=== PATIENT | male | born 1975 | race Caucasian/White ===

== ENCOUNTER 2016-08-11 14:37 | Inpatient (IN) | payer MEDICAID ==
[~2016-08-11] VITALS: Ht 172.7 cm; Wt 74.0 kg
[2016-08-11] MEDS ORDERED: LORAZEPAM 2 MG INJ IV STA (15:23)
[2016-08-11] MEDS ORDERED: LEVETIRACETAM IV 1,000 MG in SOD CHLORIDE 0.9% 100 ML IVPB STA (15:23)
[2016-08-11] MEDS ORDERED: SOD CHLORIDE 0.9% 1,000 ML IV STA (15:23)
[2016-08-11] MEDS ORDERED: SOD CHLORIDE 0.9% 1,000 ML IV ONE (15:30)
--- NOTE | 2016-08-11 15:52 | RADRPT ---
PROCEDURE: XR Chest. CLINICAL INDICATION: Seizure TECHNIQUE: Chest AP portable. COMPARISON: No comparison available. FINDINGS: The mediastinal structures are unremarkable. The heart is normal in size and configuration. The pu lmonary vascularity is normal. The lung calle are unremarkable. No consolidation is identified. The pleural spaces are unremarkable. The axial skeleton is unremarkable. IMPRESSION: No active intrathoracic disease. RPTAT: HGDB .Ulises Pradhan MD, MD Date Time Electronically viewed and signed by .Ulises Pradhan MD, on 08/11/2016 15:52 .B/
[2016-08-11 15:57] LABS: HEMOGLOBIN 12.4 g/dl (14.0-18.0); MONOCYTE # 0.3 10^3/ul (0.3-0.9); NEUTROPHIL # 5.1 10^3/ul (1.6-7.5); UNCORRECTED WBC 5.7 10^3/ul (4.8-10.8); WHITE BLOOD COUNT 5.7 10^3/ul (4.8-10.8)
[2016-08-11 16:05] LABS: BASOPHILS % 0.2 % (0.0-2.0); EOSINOPHILS % 0.1 % (0.0-7.0); HEMATOCRIT 36.2 % (42.0-52.0); LYMPHOCYTES # 0.2 10^3/ul (0.8-2.9); LYMPHOCYTES % 4.3 % (15.0-51.0); MEAN CORPUSCULAR HEMOGLOBIN 31.1 pg (29.0-33.0); MEAN CORPUSCULAR HGB CONC 34.2 g/dl (32.0-37.0); MEAN CORPUSCULAR VOLUME 90.8 fl (82.0-101.0); MONOCYTES % 5.6 % (0.0-11.0); NEUTROPHILS % 89.8 % (39.0-77.0); RED BLOOD COUNT 3.98 10^6/ul (4.70-6.10); RED CELL DISTRIBUTION WIDTH 15.4 % (11.5-14.5)
[2016-08-11 16:10] LABS: CONDITION 1; PLATELET COUNT 24 10^3/UL (140-440); SUSPECT 1
[2016-08-11 16:11] LABS: LH ANALYZER COMMENTS 1
[2016-08-11 16:26] LABS: BARBITURATES NEGATIVE (NEGATIVE); BENZODIAZEPINES NEGATIVE (NEGATIVE); CANNABINOIDS POSITIVE (NEGATIVE); COCAINE NEGATIVE (NEGATIVE); OPIATES NEGATIVE (NEGATIVE)
[2016-08-11 16:33] LABS: CHLORIDE 100 mmol/L (97-110); PLATELET ESTIMATE PLT APPEAR DECREASED; POTASSIUM 3.8 mmol/L (3.5-5.1); SODIUM 141 mmol/L (135-144)
[2016-08-11 16:35] LABS: ANION GAP 21 (8-16); ASPARTATE AMINO TRANSFERASE 160 IU/L (15-46); BILIRUBIN,INDIRECT 0.6 mg/dl (0-1.1); BILIRUBIN,TOTAL 0.6 mg/dl (0.2-1.3); CARBON DIOXIDE 24 mmol/L (21-31); CREATININE 0.75 mg/dl (0.61-1.24)
[2016-08-11 16:36] LABS: ALANINE AMINOTRANSFERASE 46 IU/L (13-69); ALKALINE PHOSPHATASE 140 IU/L (42-121); CALCIUM 8.5 mg/dl (8.4-10.2); GLUCOSE 182 mg/dl (70-220)
[2016-08-11 16:50] LABS: BLOOD UREA NITROGEN < 2 mg/dl (7-20); ETHANOL < 10.0 mg/dl
--- NOTE | 2016-08-11 16:51 | RADRPT ---
PROCEDURE: Noncontrast CT Head. CLINICAL INDICATION: Seizure. TECHNIQUE: Noncontrast CT of the head was obtained. The administered radiation dose was CTDI vol = 43.38 mGy, DLP = 630.2 mGy-cm. COMPARISON: There are no similar studies submitted for comparison. FINDINGS: There is mild to moderate generalized cerebral volume loss. There is minimal periventricular hypoattenuation suggesting chronic microvascular ischemic changes. There is a chronic right inferior frontal/basal ganglia infarction with encephalomalacia and subcort ical gliosis. There is no loss of lynch-white differentiation to suggest acute territorial infarction. There is no acute intracranial hemorrhage or extra-axial fluid collection. There is no mass effect. No midline shift is identified. The orbits are within normal limits. The paranasal sinuses are well aerated. No destructive osseous lesion is identified. IMPRESSION: 1. No acute intracranial hemorrhage or extra-axial fluid collection. 2. Mild to moderate generalized cerebral volume loss. 3. Minimal chronic microvascular ischemic changes. 4. Chronic right inferior frontal/basal ganglia infarction. Consider MRI of the brain with and without contrast which is a more sensitive examination for evalua tion of seizures as clinically warranted. Further findings as detailed above. RPTAT: PP .Mulugeta Hughes MD, MD Date Time Electronically viewed and signed by .Mulugeta Hughes MD, on 08/11/2016 16:50 .F/
[2016-08-11] MEDS ORDERED: SOD CHLORIDE 0.9% 1,000 ML IV SCH (19:17)
[2016-08-11] MEDS ORDERED: ACETAMINOPHEN 325 MG TAB PO PRN ×2 (19:30→22:30)
[2016-08-11] MEDS ORDERED: NITROGLYCERIN (SL) 0.4 MG TAB SL PRN (19:30)
[2016-08-11] MEDS ORDERED: DOCUSATE SODIUM 100 MG CAP PO PRN (19:30)
[2016-08-11] MEDS ORDERED: ACETAMINOPHEN 650 MG SUPP PR PRN (19:30)
[2016-08-11] MEDS ORDERED: LABETALOL HCL 20MG INJ IV ONE (19:30)
[2016-08-11] MEDS ORDERED: NACL 0.9% 3 ML SYG IV SCH (19:30)
[2016-08-11] MEDS ORDERED: ONDANSETRON 4 MG INJ IV PRN ×2 (19:30)
[2016-08-11] MEDS ORDERED: LORAZEPAM 2 MG INJ IV ONE (19:30)
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
[2016-08-11 19:39] LABS: INR 1.08; PT RATIO 1.1
[2016-08-11 19:40] LABS: PARTIAL THROMBOPLASTIN TIME 25.8 Sec (25.0-35.0)
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
[2016-08-11 20:19] VITALS: TEMP 98.1
[2016-08-11 20:50] LABS: INR 1.08; PARTIAL THROMBOPLASTIN TIME 25.8 Sec (25.0-35.0); PT RATIO 1.1
[2016-08-11 20:53] LABS: MAGNESIUM 1.9 mg/dl (1.7-2.5)
[2016-08-11] MEDS: LEVETIRACETAM IV 500 MG in SOD CHLORIDE 0.9% 100 ML IVPB SCH (20:54)
[2016-08-11 21:05] LABS: THROMBIN TIME 16.3 SEC (13.8-19.1)
[2016-08-11 21:15] LABS: CHOL/HDL RATIO 1.5 RATIO
[2016-08-11 21:30] VITALS: BP 136/86; PULSE 89; RESP 18; Ht 172.7 cm; Wt 74.0 kg
[2016-08-11 21:53] LABS: THYROID STIMULATING HORMONE 1.57 MIU/L (0.465-4.680)
[2016-08-11 22:09] VITALS: PULSE 86
[2016-08-11] MEDS ORDERED: morphine 2 MG INJ IV PRN (22:30)
[2016-08-11] MEDS: FAMOTIDINE 20 MG INJ IV SCH (22:34)
[2016-08-11] MEDS: MULTIVITAMINS 10 ML, THIAMINE 100 MG, FOLIC ACID 1 MG in SOD CHLORIDE 0.9% 1,000 ML IVPB SCH (22:37)
[2016-08-12] VITALS (9 sets, daily range): BP systolic 122–135; BP diastolic 78–86; PULSE 69–150; RESP 18
[2016-08-12 07:11] LABS: BASOPHILS % 0.6 % (0.0-2.0); HEMATOCRIT 31.5 % (42.0-52.0); HEMOGLOBIN 10.8 g/dl (14.0-18.0); LYMPHOCYTES # 1.1 10^3/ul (0.8-2.9); LYMPHOCYTES % 28.5 % (15.0-51.0); MEAN CORPUSCULAR HEMOGLOBIN 31.3 pg (29.0-33.0); MEAN CORPUSCULAR HGB CONC 34.2 g/dl (32.0-37.0); MEAN CORPUSCULAR VOLUME 91.6 fl (82.0-101.0); MEAN PLATELET VOLUME 9.1 fl (7.4-10.4); MONOCYTE # 0.4 10^3/ul (0.3-0.9); MONOCYTES % 9.6 % (0.0-11.0); NEUTROPHIL # 2.2 10^3/ul (1.6-7.5); NEUTROPHILS % 60.3 % (39.0-77.0); RED BLOOD COUNT 3.44 10^6/ul (4.70-6.10); RED CELL DISTRIBUTION WIDTH 15.5 % (11.5-14.5); UNCORRECTED WBC 3.7 10^3/ul (4.8-10.8); WHITE BLOOD COUNT 3.7 10^3/ul (4.8-10.8)
[2016-08-12 07:17] LABS: CONDITION 1; LH ANALYZER COMMENTS 1
[2016-08-12 07:22] LABS: PLATELET COUNT 21 10^3/UL (140-440)
[2016-08-12 07:43] LABS: ALBUMIN 3.4 g/dl (3.3-4.9); CHLORIDE 99 mmol/L (97-110); SODIUM 137 mmol/L (135-144)
[2016-08-12 07:45] LABS: CREATININE 0.71 mg/dl (0.61-1.24)
[2016-08-12 07:46] LABS: ALANINE AMINOTRANSFERASE 53 IU/L (13-69); ALKALINE PHOSPHATASE 108 IU/L (42-121); ASPARTATE AMINO TRANSFERASE 177 IU/L (15-46); BILIRUBIN,INDIRECT 1.2 mg/dl (0-1.1); BILIRUBIN,TOTAL 1.2 mg/dl (0.2-1.3); CALCIUM 8.4 mg/dl (8.4-10.2); CARBON DIOXIDE 27 mmol/L (21-31); GLUCOSE 96 mg/dl (70-220); TOTAL PROTEIN 7.1 g/dl (6.1-8.1)
[2016-08-12 07:48] LABS: ANION GAP 14 (8-16); BLOOD UREA NITROGEN < 2 mg/dl (7-20); POTASSIUM 2.8 mmol/L (3.5-5.1)
[2016-08-12 07:53] LABS: ALBUMIN/GLOBULIN RATIO 0.91
[2016-08-12] MEDS ORDERED: POTASSIUM CHLORIDE 250 ML IVPB ONE (08:30)
[2016-08-12] MEDS: MULTIVITAMINS 10 ML, THIAMINE 100 MG, FOLIC ACID 1 MG in SOD CHLORIDE 0.9% 1,000 ML IVPB SCH ×2 (09:00→18:45)
[2016-08-12 11:22] LABS: IRON 177 ug/dl (35-150)
[2016-08-12] MEDS: FAMOTIDINE 20 MG INJ IV SCH ×2 (11:30→20:49)
[2016-08-12] MEDS: SERTRALINE 50 MG TAB PO SCH (11:30)
[2016-08-12 11:32] LABS: TOTAL IRON BINDING CAPACITY 192 ug/dl (241-421)
[2016-08-12] MEDS: CHLORDIAZEPOXIDE 25 MG CAP PO SCH ×2 (11:36→20:58)
[2016-08-12] MEDS: LEVETIRACETAM IV 500 MG in SOD CHLORIDE 0.9% 100 ML IVPB SCH ×2 (12:03→20:47)
--- NOTE | 2016-08-12 14:20 | PN ---
DATE: 08/12/2016 SUBJECTIVE DATA: The patient remains confused. No more seizure episodes. The patient has a 1:1 sitter. OBJECTIVE DATA: VITAL SIGNS: Temperature 97.9, pulse rate 70, respiratory rate 18, blood pressure 135/86, oxygen saturation 98% on room air. GENERAL: This is a well-built, well-nourished male lying in bed in no apparent distress. HEENT: Head normocephalic and atraumatic. Eyes: Anicteric sclerae. Conjunctivae clear. ENT: Nasal septum is midline. Oral mucosa is dry. NECK: Supple. No JVD noticed. Scar from tracheostomy. RESPIRATORY: Bilaterally clear to auscultation. No adventitious breath sounds. No use of accessory muscles of respiration. CARDIAC: Regular rate and rhythm. No murmurs. ABDOMEN: Soft, nontender and nondistended. Bowel sounds positive in all 4 quadrants. GENITOURINARY: Deferred. EXTREMITIES: No cyanosis, no clubbing, no edema. Peripheral pulses are palpable. NEUROLOGIC: The patient is awake and alert. Oriented x1. Has generalized tremulousness. LABORATORY AND DIAGNOSTIC DATA: WBC 3.7, hemoglobin 10.8, hematocrit 31.5, platelet count 21. Sodium 137, potassium 2.8, chloride 99, carbon dioxide 27, anion gap 14, BUN less than 2, creatinine 0.71, glucose 96, calcium 8.4, AST 177 , ALT 53, alkaline phosphatase 108. ASSESSMENT AND PLAN: 1. Tonic-clonic seizures. New onset. Most probably secondary to alcohol withdrawal. The patient will be maintained on seizure precautions. We will continue the patient on prophylactic Keppra. Await electroencephalography. Await neurology evaluation. 2. Alcohol withdrawal delirium. We will continue the patient on daily banana bag. We will continue the patient on a Librium taper. The patient will be maintained on p.r.n. IV benzodiazepines for any acute anxiety episodes. 3. Severe thrombocytopenia, most probably alcohol induced. Will transfuse platelets as needed. We will avoid any anticoagulation. We will monitor the patient closely for any bleeding. 4. Normocytic normochromic anemia, most probably secondary to underlying alcohol abuse. We will monitor the H and H closely. Will transfuse as needed. 5. Severe hypokalemia. We will replete the potassium. Will obtain a serum magnesium level. 6. Transaminitis, most probably secondary to underlying alcohol abuse. Will hold any hepatotoxic medications. 7. Dyslipidemia. Elevated total cholesterol. Will reinforce a low cholesterol diet. 8. Depression: The patient will continue to have a 1:1 sitter. The patient will be started on antidepressants until a psychiatric consult will be obtained since the patient was verbalizing/asking the family to "shoot him". 9. Fluid, electrolytes and nutrition. Low cholesterol diet. 10. Deep venous thrombosis prophylaxis. Contraindicated. 11. Gastrointestinal prophylaxis. Histamine 2 receptor blockers. PLAN: 1. Continue telemetry monitoring. 2. Await neurology evaluation. Case discussed with Dr. Sky. KEON SKY MD, AM/JAXSON Conf#: [id number] DID#: [id number] MTDD
[2016-08-12] MEDS: LORAZEPAM 2 MG INJ IV PRN ×2 (14:54→22:52)
[2016-08-12] MEDS ORDERED: LORAZEPAM 2 MG INJ IV PRN (18:30)
[2016-08-12] MEDS ORDERED: LORAZEPAM 2 MG INJ IV ONE (18:30)
--- NOTE | 2016-08-12 18:39 | CONS ---
DATE OF ADMISSION: 08/11/2016 DATE OF CONSULTATION: 08/12/2016 TYPE OF CONSULTATION: Neurology. Thank you, Dr. Mcmanus, for your kind referral for evaluation of seizure and alcohol withdrawal and encephalopathy. HISTORY OF PRESENT ILLNESS: The patient is a 41-year-old gentleman with essentially no past medical history who came following seizure episode at home. His history of alcohol abuse he states that is a few beers daily, which he stopped consuming about 1 week ago. CAT scan of the brain did not show any acute abnormality. Chest x-ray within normal limits. Labs shows on admission, platelet count of 24, he has 21 today, but he just received platelets. WBC 3.7, hemoglobin 10.8, hematocrit 31. P otassium 2.8, sodium 137. Rest of basic metabolic panel within normal limits. He has AST 177, ALT 53, indirect bilirubin 1.2. Tox screen is negative for drugs, no alcohol. Patient was put on Keppra as well as Librium 25 mg 3 times a day and "banana bag". PAST MEDICAL HISTORY: None. ALLERGIES: NONE. SOCIAL HISTORY: As above, he is a smoker. No drug use. FAMILY HISTORY: Noncontributory. REVIEW OF SYSTEMS: All pertinent positives include the above history of present illness. PHYSICAL EXAMINATION: VITAL SIGNS: Today, 97.9 temperature, 81 pulse, 18 respirations, 135/86 blood pressure. GENERAL: He is not in acute distress, lying in bed. HEENT: Normocephalic, atraumatic head. NECK: No carotid bruits. No thyromegaly. LUNGS: Clear to auscultation bilaterally. CARDIAC: Normal cardiac rhythm and sounds. ABDOMEN: Soft, nontender. EXTREMITIES: No cyanosis, clubbing or edema. NEUROLOGIC: He is awake, alert, and oriented x1. Fluent speech. Cranial nerve examination shows i ntact visual calle bilaterally. Pupils round, reactive to light from 4 to 2 mm bilaterally. Extra ocular movements intact without nystagmus. Symmetrical face. Preserved facial strength and sensati on. Tongue is in midline. Palate elevates symmetrically. Motor strength examination preserved in all extremities. Normal bulk, tone, and strength. Sensory examination grossly intact to light touc h and pain. Deep tendon reflexes 2+ throughout. Downgoing toes bilaterally. Coordination examinat ion shows no dysrhythmia, but postural tremor in bilateral upper extremities. He is grossly tremulo us when he gets up and walks. IMPRESSION: Alcohol withdrawal. Alcohol withdrawal, delirium. Likely alcohol withdrawal seizure. Continue treatment with benzodiazepines. Will obtain EEG, it is okay to continue Keppra for now. Thank you very much for this interesting consultation. Dictated By: ANNEMARIE RODRIGUEZ/JAXSON Conf#: [id number] DID#: [id number]
[2016-08-12] MEDS ORDERED: MAGNESIUM SULFATE 2 GM/50 ML 50 ML IVPB ONE (19:30)
[2016-08-12] MEDS: HALOPERIDOL 5 MG INJ IM PRN (23:34)
[2016-08-13] VITALS (11 sets, daily range): BP systolic 128–160; BP diastolic 82–104; PULSE 70–92; RESP 16–20
[2016-08-13 05:54] LABS: EOSINOPHILS # 0.1 10^3/ul (0.0-0.5); EOSINOPHILS % 1.3 % (0.0-7.0); HEMATOCRIT 34.8 % (42.0-52.0); HEMOGLOBIN 11.8 g/dl (14.0-18.0); LYMPHOCYTES # 1.1 10^3/ul (0.8-2.9); LYMPHOCYTES % 25.1 % (15.0-51.0); MEAN CORPUSCULAR HEMOGLOBIN 31.5 pg (29.0-33.0); MEAN CORPUSCULAR HGB CONC 33.9 g/dl (32.0-37.0); MEAN CORPUSCULAR VOLUME 92.8 fl (82.0-101.0); MEAN PLATELET VOLUME 7.7 fl (7.4-10.4); MONOCYTE # 0.4 10^3/ul (0.3-0.9); MONOCYTES % 9.3 % (0.0-11.0); NEUTROPHIL # 2.9 10^3/ul (1.6-7.5); NEUTROPHILS % 63.3 % (39.0-77.0); PLATELET COUNT 82 10^3/UL (140-440); RED BLOOD COUNT 3.75 10^6/ul (4.70-6.10); RED CELL DISTRIBUTION WIDTH 15.6 % (11.5-14.5); UNCORRECTED WBC 4.5 10^3/ul (4.8-10.8); WHITE BLOOD COUNT 4.5 10^3/ul (4.8-10.8)
[2016-08-13 06:00] LABS: CONDITION 1; LH ANALYZER COMMENTS 1
[2016-08-13 06:13] LABS: MAGNESIUM 1.9 mg/dl (1.7-2.5); PHOSPHORUS 4.3 mg/dl (2.5-4.9)
[2016-08-13 06:18] LABS: ALBUMIN 3.7 g/dl (3.3-4.9); CHLORIDE 102 mmol/L (97-110)
[2016-08-13 06:19] LABS: SODIUM 144 mmol/L (135-144)
[2016-08-13 06:21] LABS: ALBUMIN/GLOBULIN RATIO 0.94; ALKALINE PHOSPHATASE 114 IU/L (42-121); ANION GAP 17 (8-16); ASPARTATE AMINO TRANSFERASE 200 IU/L (15-46); CARBON DIOXIDE 28 mmol/L (21-31); CREATININE 0.67 mg/dl (0.61-1.24); TOTAL PROTEIN 7.6 g/dl (6.1-8.1)
[2016-08-13 06:22] LABS: ALANINE AMINOTRANSFERASE 59 IU/L (13-69); CALCIUM 8.6 mg/dl (8.4-10.2); GLUCOSE 81 mg/dl (70-220)
[2016-08-13 06:37] LABS: BLOOD UREA NITROGEN < 2 mg/dl (7-20); POTASSIUM 2.8 mmol/L (3.5-5.1)
[2016-08-13] MEDS: CHLORDIAZEPOXIDE 25 MG CAP PO SCH ×3 (08:17→21:12)
[2016-08-13] MEDS: SERTRALINE 50 MG TAB PO SCH (08:17)
[2016-08-13] MEDS: POTASSIUM CHLORIDE (SR) 20 MEQ TAB PO SCH ×2 (08:17→12:39)
[2016-08-13] MEDS: FAMOTIDINE 20 MG INJ IV SCH ×2 (08:17→21:13)
[2016-08-13] MEDS: LEVETIRACETAM IV 500 MG in SOD CHLORIDE 0.9% 100 ML IVPB SCH ×2 (08:17→21:09)
[2016-08-13] MEDS: MULTIVITAMINS 10 ML, THIAMINE 100 MG, FOLIC ACID 1 MG in SOD CHLORIDE 0.9% 1,000 ML IVPB SCH (08:34)
--- NOTE | 2016-08-13 15:16 | PN ---
Date/Time of Note Date/Time of Note DATE: 08/13/16 TIME: 15:14 Assessment/Plan VTE Prophylaxis VTE Prophylaxis Intervention: SCD's Lines/Catheters IV Catheter Type (from [facility]): Peripheral IV Urinary Cath still in place: No Assessment/Plan Chief Complaint/Hosp Course 1. Tonic-clonic seizures. New onset. Most probably secondary to alcohol withdrawal. The patient will be maintained on seizure precautions. We will continue the patient on prophylactic Keppra. Await electroencephalography -Neuro consult appreciated 2. Alcohol withdrawal delirium. We will continue the patient on daily banana bag. We will continue the patient on a Librium taper. The patient will be maintained on p.r.n. IV benzodiazepines for any acute anxiety episodes. 3. Severe thrombocytopenia, most probably alcohol induced. Will transfuse platelets as needed. We will avoid any anticoagulation. We will monitor the patient closely for any bleeding. 4. Normocytic normochromic anemia, most probably secondary to underlying alcohol abuse. We will monitor the H and H closely. Will transfuse as needed. 5. Severe hypokalemia. We will replete the potassium. 6. Transaminitis, most probably secondary to underlying alcohol abuse. Will hold any hepatotoxic medications. 7. Dyslipidemia. Elevated total cholesterol. Will reinforce a low cholesterol diet. 8. Depression: The patient will continue to have a 1:1 sitter. The patient will be started on antidepressants until a psychiatric consult will be obtained since the patient was verbalizing/asking the family to "shoot him". 9. Fluid, electrolytes and nutrition. Low cholesterol diet. 10. Deep venous thrombosis prophylaxis. SCD's 11. Gastrointestinal prophylaxis. Histamine 2 receptor blockers. Problems: Subjective 24 Hr Interval Summary Constitutional: disoriented Exam/Review of Systems Vital Signs Vitals Vital Signs Date Time Temp Pulse Resp B/P Pulse Ox O2 Delivery O2 Flow Rate FiO2 08/13/16 12:15 70 08/13/16 12:00 98.0 18 160/99 94 Room Air Intake and Output 08/12/16 08/12/16 08/13/16 15:00 23:00 07:00 Intake Total 1000 ml 800 ml Output Total 800 ml 1000 ml Balance 200 ml -200 ml Exam Constitutional: alert Respiratory: clear to auscultation Cardiovascular: regular rate and rhythm Gastrointestinal: soft, No distended Musculoskeletal: nl extremities to inspection Results Result Diagram: 08/13/16 0513 08/13/16 0513 Results 24 hrs Laboratory Tests Test 08/13/16 04:13 08/13/16 05:13 Ammonia 53 H Alanine Aminotransferase (ALT/SGPT) 59 Albumin 3.7 Albumin/Globulin Ratio 0.94 Alkaline Phosphatase 114 Anion Gap 17 H Aspartate Amino Transf (AST/SGOT) 200 H Basophils # 0.0 Basophils % 1.0 Blood Morphology Comment Blood Urea Nitrogen < 2 L Calcium Level 8.6 Carbon Dioxide Level 28 Chloride Level 102 Creatinine 0.67 Direct Bilirubin 0.00 Eosinophils # 0.1 Eosinophils % 1.3 Globulin 3.90 H Glucose Level 81 Hematocrit 34.8 L Hemoglobin 11.8 L Indirect Bilirubin 1.0 Lymphocytes # 1.1 Lymphocytes % 25.1 Magnesium Level 1.9 Mean Corpuscular Hemoglobin 31.5 Mean Corpuscular Hemoglobin Concent 33.9 Mean Corpuscular Volume 92.8 Mean Platelet Volume 7.7 Monocytes # 0.4 Monocytes % 9.3 Neutrophils # 2.9 Neutrophils % 63.3 Nucleated Red Blood Cells # 0.0 Nucleated Red Blood Cells % 0.0 Phosphorus Level 4.3 Platelet Count 82 #L Potassium Level 2.8 *L Red Blood Count 3.75 L Red Cell Distribution Width 15.6 H Sodium Level 144 Total Bilirubin 1.0 Total Protein 7.6 White Blood Count 4.5 #L Medications Medications Current Medications Lorazepam (Ativan) 1 mg Q2H PRN IV seizure Last administered on 08/12/16 22:52 ; Admin Dose 1 MG; Start 08/11/16 at 19:30 Ondansetron HCl (Zofran Inj) 4 mg Q6H PRN IV NAUSEA AND/OR VOMITING; Start at 19:30 Nitroglycerin (Nitroglycerin (Sl Tab) 0.4 Mg) 1 tab Q5M PRN SL CHEST PAIN; Start 08/11/16 at 19:30 Acetaminophen (Tylenol Supp) 650 mg Q6H PRN [place] PAIN LEVEL 1-3 OR FEVER; Start 08/11/16 at 19:30 Docusate Sodium (Colace) 100 mg Q12H PRN PO CONSTIPATION; Start 08/11/16 at 19: 30 Famotidine 20 mg 20 mg Q12 IV Last administered on 08/13/16 08:17; Admin Dose 20 MG; Start 08/11/16 at 21:00 Levetiracetam 500 mg/Sodium Chloride 105 ml @ 420 mls/hr Q12 IVPB Last administered on 08/13/16 08:17; Admin Dose 420 MLS/HR; Start 08/11/16 at 21:00 Multivitamins/ Thiamine HCl/ Folic Acid/Sodium Chloride (Mvi-12 Adult/ Vitamin B1/Folic Acid/NS) 1,011.2 ml @ 125 mls/ hr DAILY@09 IVPB Last administered on 08/13/16 08:34; Admin Dose 125 MLS/HR; Start 08/12/16 at 09:00 Morphine Sulfate (morphine) 2 mg Q4H PRN IV PAIN LEVEL 7-10; Start 08/11/16 at 22:30 Acetaminophen (Tylenol Tab) 650 mg Q6H PRN PO PAIN AND OR ELEVATED TEMP; Start 08/11/16 at 22:30 Chlordiazepoxide (Librium) 25 mg TID PO Last administered on 08/13/16 12:39; Admin Dose 25 MG; Start 08/12/16 at 11:30 Sertraline HCl (Zoloft) 50 mg DAILY PO Last administered on 08/13/16 08:17; Admin Dose 50 MG; Start 08/12/16 at 11:00 Lorazepam (Ativan) 1 mg Q2H PRN IV AGITATION; Start 08/12/16 at 18:30 Haloperidol (Haldol) 2.5 mg Q4 PRN IM AGITATION Last administered on 08/12/16 23:34; Admin Dose 2.5 MG; Start 08/12/16 at 23:30 ARTURO ACOSTA Aug 13, 2016 15:16
--- NOTE | 2016-08-14 05:55 | SP ---
DATE OF PROCEDURE: 08/13/2016 PROCEDURE: Electroencephalogram. INDICATION: A 41-year-old gentleman with alcohol withdrawal seizures and encephalopathy and deliriu m. The patient is currently on benzodiazepines as well as Keppra. DESCRIPTION OF PROCEDURE: Routine EEG was recorded digitally. [id number] and afdsh-ae-rux steven ages were recorded and reviewed. All impedances were measured and recorded. Cap electrodes were placed in accordance with International 10-20 system of electrode placement. FINDINGS: Symmetrically distributed background activity of low amplitude, approximately 12 cycles p er second, was seen intermixing with even smaller amplitudes and higher frequency beta range activit y seen in the awake state. Photic stimulation produces no definite driving. Hyperventilation elici ts no epileptiform activity. Eye opening attenuates the background. No epileptiform transients were seen. No signs of ongoing electrographic seizures or lateralized sl owing. IMPRESSION: Essentially normal study. Please correlate clinically. Abundance of beta activity is secondary to benzodiazepines. Dictated By: ANNEMARIE RODRIGUEZ/JAXSON Conf#: [id number] DID#: [id number]
[2016-08-14 06:26] LABS: POTASSIUM 4.1 mmol/L (3.5-5.1)
[2016-08-14 06:29] LABS: CALCIUM 9.7 mg/dl (8.4-10.2); CREATININE 0.74 mg/dl (0.61-1.24)
[2016-08-14 07:04] LABS: BASOPHILS % 0.4 % (0.0-2.0); EOSINOPHILS # 0.1 10^3/ul (0.0-0.5); EOSINOPHILS % 1.8 % (0.0-7.0); HEMATOCRIT 34.8 % (42.0-52.0); HEMOGLOBIN 11.8 g/dl (14.0-18.0); LYMPHOCYTES # 1.4 10^3/ul (0.8-2.9); LYMPHOCYTES % 23.8 % (15.0-51.0); MEAN CORPUSCULAR HEMOGLOBIN 31.5 pg (29.0-33.0); MEAN CORPUSCULAR HGB CONC 33.8 g/dl (32.0-37.0); MEAN PLATELET VOLUME 8.3 fl (7.4-10.4); MONOCYTE # 0.6 10^3/ul (0.3-0.9); MONOCYTES % 9.8 % (0.0-11.0); NEUTROPHIL # 3.7 10^3/ul (1.6-7.5); NEUTROPHILS % 64.2 % (39.0-77.0); PLATELET COUNT 93 10^3/UL (140-440); RED BLOOD COUNT 3.74 10^6/ul (4.70-6.10); RED CELL DISTRIBUTION WIDTH 15.8 % (11.5-14.5); UNCORRECTED WBC 5.7 10^3/ul (4.8-10.8); WHITE BLOOD COUNT 5.7 10^3/ul (4.8-10.8)
[2016-08-14 07:17] LABS: CONDITION 1; LH ANALYZER COMMENTS 1
[2016-08-14 07:50] VITALS: BP 170/114; PULSE 68; RESP 18
[2016-08-14] MEDS: SERTRALINE 50 MG TAB PO SCH (09:29)
[2016-08-14] MEDS: LEVETIRACETAM IV 500 MG in SOD CHLORIDE 0.9% 100 ML IVPB SCH ×2 (09:29→20:37)
[2016-08-14] MEDS: FAMOTIDINE 20 MG INJ IV SCH ×2 (09:30→20:37)
[2016-08-14 10:00] VITALS: BP 160/109; PULSE 68; RESP 18
[2016-08-14] MEDS: CHLORDIAZEPOXIDE 25 MG CAP PO SCH ×3 (11:31→20:37)
[2016-08-14] MEDS: MULTIVITAMINS 10 ML, THIAMINE 100 MG, FOLIC ACID 1 MG in SOD CHLORIDE 0.9% 1,000 ML IVPB SCH (12:40)
--- NOTE | 2016-08-14 13:01 | PSY ---
Date/Time of Note Date/Time of Note DATE: 08/14/16 TIME: 12:31 Psychiatric Subjective Eval Consent Pt consented to telemedicine: Yes Subjective Evaluation Patient location: inpatient Chief Complaint: Pt BIB RA #7 FOR alchohol intoxication and witnessed Seizures. Reason for consult: elizabeth mcwilliams, he does not want to live anymore History of present illness Pt is 41 yo single disabled male with hx alcohol dependence who was admitted due to alcohol withdrawals seizures. pt said yesterday he does not want to be alive anymore and he is depressed. Today he is adamanlty denies any si to me, says, he is depressed, unmotivated, hopeless, but he is not suicidal and would never do it. He says he has been depressed since his daughter in MVA a few years ago, but go not treatment for depression. Denies si/hi, denies ah/vh. Past psychiatric history denies prior treatments Family History denies Medical history Problems Medical Problems: (1) Alcohol withdrawal Status: Acute (2) Temporary low platelet count Status: Acute (3) Withdrawal seizures Status: Acute Allergies: Coded Allergies: No Known Allergy (Unverified , 08/13/16) Substance Abuse Substance abuse history: Yes Prior substance abuse treatmen: Yes Social History Marital status: single Level of education: college DPA/Conservatorship: No Occupation/Jail: disabled Psychiatric Objective Eval Mental Status Examination: Appearance: Disheveled Eye Contact: Good Psychomotor Activity: Normal Behavior: Cooperative Speech: Clear AFFECT: Appropriate Mood: Depressed Though Process: Linear Thought Content: Normal Suicidal: No Homicidal: No On 72 hour hold: No Orientation: x4 Insight: Intact Judgement: Impared Laboratory Results Laboratory Tests Test 08/13/16 04:13 08/13/16 05:13 08/14/16 05:00 Ammonia 53umol/l Alanine Aminotransferase (ALT/SGPT) 59IU/L Albumin 3.7g/dl Albumin/Globulin Ratio 0.94 Alkaline Phosphatase 114IU/L Anion Gap 17 15 Aspartate Amino Transf (AST/SGOT) 200IU/L Basophils # 0.010^3/ul 0.010^3/ul Basophils % 1.0% 0.4% Blood Morphology Comment Blood Urea Nitrogen < 2mg/dl 9mg/dl Calcium Level 8.6mg/dl 9.7mg/dl Carbon Dioxide Level 28mmol/L 30mmol/L Chloride Level 102mmol/L 100mmol/L Creatinine 0.67mg/dl 0.74mg/dl Direct Bilirubin 0.00mg/dl Eosinophils # 0.110^3/ul 0.110^3/ul Eosinophils % 1.3% 1.8% Globulin 3.90g/dl Glucose Level 81mg/dl 129mg/dl Hematocrit 34.8% 34.8% Hemoglobin 11.8g/dl 11.8g/dl Indirect Bilirubin 1.0mg/dl Lymphocytes # 1.110^3/ul 1.410^3/ul Lymphocytes % 25.1% 23.8% Magnesium Level 1.9mg/dl Mean Corpuscular Hemoglobin 31.5pg 31.5pg Mean Corpuscular Hemoglobin Concent 33.9g/dl 33.8g/dl Mean Corpuscular Volume 92.8fl 93.0fl Mean Platelet Volume 7.7fl 8.3fl Monocytes # 0.410^3/ul 0.610^3/ul Monocytes % 9.3% 9.8% Neutrophils # 2.910^3/ul 3.710^3/ul Neutrophils % 63.3% 64.2% Nucleated Red Blood Cells # 0.010^3/ul 0.010^3/ul Nucleated Red Blood Cells % 0.0/100WBC 0.0/100WBC Phosphorus Level 4.3mg/dl Platelet Count 8210^3/UL 9310^3/UL Potassium Level 2.8mmol/L 4.1mmol/L Red Blood Count 3.7510^6/ul 3.7410^6/ul Red Cell Distribution Width 15.6% 15.8% Sodium Level 144mmol/L 141mmol/L Total Bilirubin 1.0mg/dl Total Protein 7.6g/dl White Blood Count 4.510^3/ul 5.710^3/ul Assessment and Plan Assessment/Diagnosis [place] I: ALCOHOL USE DISORDER. MAJOR DEPRESSIVE DISORDER. R/O PTSD [place] II: DEFERED [place] III: PER RECORD [place] IV: SEVERE [place] V: GAF 45 Recommendation/Plan Medication Management CONTINUE CIWA; START REMERON 15 MGPO QHS - PT CONSENTED Psychotherapy REFER TO CD TREATMENT Follow-up/Disposition REFER TO OUTPT [facility] FLORIDALMA MACE MD Aug 14, 2016 13:00
--- NOTE | 2016-08-14 14:39 | PN ---
Date/Time of Note Date/Time of Note DATE: 08/14/16 TIME: 14:36 Assessment/Plan VTE Prophylaxis VTE Prophylaxis Intervention: SCD's Lines/Catheters IV [facility] ([facility] Peripheral IV Urinary Cath still in place: No Assessment/Plan Chief Complaint/Hosp Course 1. Tonic-clonic seizures. New onset. Most probably secondary to alcohol withdrawal. The patient will be maintained on seizure precautions. We will continue the patient on prophylactic Keppra. Await electroencephalography -Neuro consult appreciated 2. Alcohol withdrawal delirium. We will continue the patient on daily banana bag. We will continue the patient on a Librium taper. The patient will be maintained on p.r.n. IV benzodiazepines for any acute anxiety episodes. 3. Severe thrombocytopenia, most probably alcohol induced. Will transfuse platelets as needed. We will avoid any anticoagulation. We will monitor the patient closely for any bleeding. 4. Normocytic normochromic anemia, most probably secondary to underlying alcohol abuse. We will monitor the H and H closely. Will transfuse as needed. 5. Severe hypokalemia. We will replete the potassium. 6. Transaminitis, most probably secondary to underlying alcohol abuse. Will hold any hepatotoxic medications. 7. Dyslipidemia. Elevated total cholesterol. Will reinforce a low cholesterol diet. 8. Depression with reports of suicidal ideation: The patient will continue to have a 1:1 sitter, Psychiatric consult appreciated, started on Remeron 9. Fluid, electrolytes and nutrition. Low cholesterol diet. 10. Deep venous thrombosis prophylaxis. SCD's 11. Gastrointestinal prophylaxis. Histamine 2 receptor blockers. Problems: Subjective 24 Hr Interval Summary Constitutional: no complaints Exam/Review of Systems Vital Signs Vitals Vital Signs Date Time Temp Pulse Resp B/P Pulse Ox O2 Delivery O2 Flow Rate FiO2 08/14/16 10:00 98.8 68 18 160/109 99 Room Air Intake and Output 08/13/16 08/13/16 08/14/16 15:00 23:00 07:00 Intake Total 2025 ml 820 ml Output Total 1000 ml Balance 1025 ml 820 ml Exam Constitutional: alert Respiratory: clear to auscultation Cardiovascular: regular rate and rhythm Gastrointestinal: soft, No distended Musculoskeletal: nl extremities to inspection Results Result Diagram: 08/14/16 0500 08/14/16 0500 Results 24 hrs Laboratory Tests Test 08/14/16 05:00 Anion Gap 15 Basophils # 0.0 Basophils % 0.4 Blood Morphology Comment Blood Urea Nitrogen 9 Calcium Level 9.7 Carbon Dioxide Level 30 Chloride Level 100 Creatinine 0.74 Eosinophils # 0.1 Eosinophils % 1.8 Glucose Level 129 # Hematocrit 34.8 L Hemoglobin 11.8 L Lymphocytes # 1.4 Lymphocytes % 23.8 Mean Corpuscular Hemoglobin 31.5 Mean Corpuscular Hemoglobin Concent 33.8 Mean Corpuscular Volume 93.0 Mean Platelet Volume 8.3 Monocytes # 0.6 Monocytes % 9.8 Neutrophils # 3.7 Neutrophils % 64.2 Nucleated Red Blood Cells # 0.0 Nucleated Red Blood Cells % 0.0 Platelet Count 93 L Potassium Level 4.1 Red Blood Count 3.74 L Red Cell Distribution Width 15.8 H Sodium Level 141 White Blood Count 5.7 # Medications Medications Current Medications Lorazepam (Ativan) 1 mg Q2H PRN IV seizure Last administered on 08/12/16 22:52 ; Admin Dose 1 MG; Start 08/11/16 at 19:30 Ondansetron HCl (Zofran Inj) 4 mg Q6H PRN IV NAUSEA AND/OR VOMITING; Start at 19:30 Nitroglycerin (Nitroglycerin (Sl Tab) 0.4 Mg) 1 tab Q5M PRN SL CHEST PAIN; Start 08/11/16 at 19:30 Docusate Sodium (Colace) 100 mg Q12H PRN PO CONSTIPATION; Start 08/11/16 at 19: 30 Famotidine 20 mg 20 mg Q12 IV Last administered on 08/14/16 09:30; Admin Dose 20 MG; Start 08/11/16 at 21:00 Levetiracetam 500 mg/Sodium Chloride 105 ml @ 420 mls/hr Q12 IVPB Last administered on 08/14/16 09:29; Admin Dose 420 MLS/HR; Start 08/11/16 at 21:00 Multivitamins/ Thiamine HCl/ Folic Acid/Sodium Chloride (Mvi-12 Adult/ Vitamin B1/Folic Acid/NS) 1,011.2 ml @ 125 mls/ hr DAILY@09 IVPB Last administered on 08/14/16 12:40; Admin Dose 125 MLS/HR; Start 08/12/16 at 09:00 Morphine Sulfate (morphine) 2 mg Q4H PRN IV PAIN LEVEL 7-10; Start 08/11/16 at 22:30 Acetaminophen (Tylenol Tab) 650 mg Q6H PRN PO PAIN AND OR ELEVATED TEMP; Start 08/11/16 at 22:30 Chlordiazepoxide (Librium) 25 mg TID PO Last administered on 08/14/16 12:40; Admin Dose 25 MG; Start 08/12/16 at 11:30 Sertraline HCl (Zoloft) 50 mg DAILY PO Last administered on 08/14/16 09:29; Admin Dose 50 MG; Start 08/12/16 at 11:00 Lorazepam (Ativan) 1 mg Q2H PRN IV AGITATION; Start 08/12/16 at 18:30 Haloperidol (Haldol) 2.5 mg Q4 PRN IM AGITATION Last administered on 08/12/16 23:34; Admin Dose 2.5 MG; Start 08/12/16 at 23:30 ARTURO ACOSTA Aug 14, 2016 14:39
[2016-08-14 16:41] LABS: BILIRUBIN,INDIRECT 0.4 mg/dl (0-1.1); BILIRUBIN,TOTAL 0.4 mg/dl (0.2-1.3); TOTAL PROTEIN 7.9 g/dl (6.1-8.1)
[2016-08-14 17:00] LABS: HAAIG REFLEX REFLEX FILED
--- NOTE | 2016-08-14 17:11 | CONS ---
Date/Time of Note Date/Time of Note DATE: 08/14/16 TIME: 17:10 Assessment/Plan Assessment/Plan Additional Assessment/Plan Transaminitis * Acute hepatitis panel * Abdominal ultrasound * Monitor LFTs Anemia * Stool OB 2 * PPI therapy * If EGD clinically indicated, patient aware of R/B/A of procedure and patient and mother are agreeable to proceed * Monitor H&H every 6 hours, transfuse 2 units for hemoglobin less then 7.5 * Further recommendations depend on clinical course Consultation Date/Type/Reason Admit Date/Time 08/11/2016, 7:39 pm Type of Consultation: Gastroenterology Reason for Consultation Transaminitis Hx of Present Illness 41-year-old male was admitted to hospital for evaluation of seizure after alcohol intoxication. Patient noted to have elevated liver function test and anemia. Patient unable to provide concise history due to history of alcohol abuse and reports from mother, who is at bedside, that he problems with short- term memory. Patient and mother do report history of acid reflux. Patient reports remote history of melena stools but unable to provide duration and timing. Patient unsure of history of liver disease. At bedside patient tolerating diet.Denies abdominal pain, nausea, vomiting, melena stools, diarrhea , and constipation Constitutional: no complaints Past Medical History Medical History: GERD Past Surgical History Past Surgical Hx: no surgical history Social History Alcohol Use: heavy Smoking Status: Current every day smoker Drug Use: marijuana Exam/Review of Systems Vital Signs Vitals Vital Signs Date Time Temp Pulse Resp B/P Pulse Ox O2 Delivery O2 Flow Rate FiO2 08/14/16 10:00 98.8 68 18 160/109 99 Room Air Intake and Output 08/13/16 08/13/16 08/14/16 15:00 23:00 07:00 Intake Total 2025 ml 820 ml Output Total 1000 ml Balance 1025 ml 820 ml Exam Constitutional: alert, oriented, well developed Psych: no complaints Head: normocephalic Eyes: EOMI, nl conjunctiva, nl lids, nl sclera Respiratory: clear to auscultation Cardiovascular: regular rate and rhythm Gastrointestinal: non-tender, soft Musculoskeletal: nl extremities to inspection Neurological: nl mental status, nl speech Results Result Diagram: 08/14/16 0500 08/14/16 0500 Results 24 hrs Laboratory Tests Test 08/14/16 05:00 Alanine Aminotransferase (ALT/SGPT) 76 H Albumin 4.0 Alkaline Phosphatase 115 Anion Gap 15 Aspartate Amino Transf (AST/SGOT) 205 H Basophils # 0.0 Basophils % 0.4 Blood Morphology Comment Blood Urea Nitrogen 9 Calcium Level 9.7 Carbon Dioxide Level 30 Chloride Level 100 Creatinine 0.74 Direct Bilirubin 0.00 Eosinophils # 0.1 Eosinophils % 1.8 Glucose Level 129 # Hematocrit 34.8 L Hemoglobin 11.8 L Hepatitis B Core Total Antibody Pending Hepatitis B Surface Antigen Pending Hepatitis C Antibody Pending Indirect Bilirubin 0.4 Lymphocytes # 1.4 Lymphocytes % 23.8 Mean Corpuscular Hemoglobin 31.5 Mean Corpuscular Hemoglobin Concent 33.8 Mean Corpuscular Volume 93.0 Mean Platelet Volume 8.3 Monocytes # 0.6 Monocytes % 9.8 Neutrophils # 3.7 Neutrophils % 64.2 Nucleated Red Blood Cells # 0.0 Nucleated Red Blood Cells % 0.0 Platelet Count 93 L Potassium Level 4.1 Red Blood Count 3.74 L Red Cell Distribution Width 15.8 H Sodium Level 141 Total Bilirubin 0.4 Total Protein 7.9 White Blood Count 5.7 # Medications Medications Current Medications Lorazepam (Ativan) 1 mg Q2H PRN IV seizure Last administered on 08/12/16 22:52 ; Admin Dose 1 MG; Start 08/11/16 at 19:30 Ondansetron HCl (Zofran Inj) 4 mg Q6H PRN IV NAUSEA AND/OR VOMITING Last administered on 08/14/16 15:26; Admin Dose 4 MG; Start 08/11/16 at 19:30 Nitroglycerin (Nitroglycerin (Sl Tab) 0.4 Mg) 1 tab Q5M PRN SL CHEST PAIN; Start 08/11/16 at 19:30 Docusate Sodium (Colace) 100 mg Q12H PRN PO CONSTIPATION; Start 08/11/16 at 19: 30 Famotidine 20 mg 20 mg Q12 IV Last administered on 08/14/16 09:30; Admin Dose 20 MG; Start 08/11/16 at 21:00 Levetiracetam 500 mg/Sodium Chloride 105 ml @ 420 mls/hr Q12 IVPB Last administered on 08/14/16 09:29; Admin Dose 420 MLS/HR; Start 08/11/16 at 21:00 Multivitamins/ Thiamine HCl/ Folic Acid/Sodium Chloride (Mvi-12 Adult/ Vitamin B1/Folic Acid/NS) 1,011.2 ml @ 125 mls/ hr DAILY@09 IVPB Last administered on 08/14/16 12:40; Admin Dose 125 MLS/HR; Start 08/12/16 at 09:00 Morphine Sulfate (morphine) 2 mg Q4H PRN IV PAIN LEVEL 7-10; Start 08/11/16 at 22:30 Acetaminophen (Tylenol Tab) 650 mg Q6H PRN PO PAIN AND OR ELEVATED TEMP; Start 08/11/16 at 22:30 Chlordiazepoxide (Librium) 25 mg TID PO Last administered on 08/14/16 12:40; Admin Dose 25 MG; Start 08/12/16 at 11:30 Sertraline HCl (Zoloft) 50 mg DAILY PO Last administered on 08/14/16 09:29; Admin Dose 50 MG; Start 08/12/16 at 11:00 Lorazepam (Ativan) 1 mg Q2H PRN IV AGITATION; Start 08/12/16 at 18:30 Haloperidol (Haldol) 2.5 mg Q4 PRN IM AGITATION Last administered on 08/12/16 23:34; Admin Dose 2.5 MG; Start 08/12/16 at 23:30 EMILIA WRIGHT MD Aug 14, 2016 17:11
[2016-08-14 17:57] LABS: HEPATITIS B CORE ANTIBODY NEGATIVE (NEGATIVE)
[2016-08-14] MEDS: HALOPERIDOL 5 MG INJ IM PRN (20:37)
[2016-08-14 20:51] VITALS: BP 153/95; RESP 17
--- NOTE | 2016-08-14 21:27 | CONS ---
Date/Time of Note Date/Time of Note DATE: 08/14/16 TIME: 21:23 Consult Date/Type/Reason Admit Date/Time Aug 11, 2016 at 19:18 Initial Consult Date Type of Consultation: neurology Subjective No seizures, still confused, less tremulous Objective Vital Signs Date Time Temp Pulse Resp B/P Pulse Ox O2 Delivery O2 Flow Rate FiO2 08/14/16 20:51 98.1 98 17 153/95 99 08/14/16 10:00 Room Air Intake and Output 08/13/16 08/13/16 08/14/16 15:00 23:00 07:00 Intake Total 2025 ml 820 ml Output Total 1000 ml Balance 1025 ml 820 ml Results/Medications Result Diagram: 08/14/16 0500 08/14/16 0500 Results 24 hrs Laboratory Tests Test 08/14/16 05:00 Alanine Aminotransferase (ALT/SGPT) 76 H Albumin 4.0 Alkaline Phosphatase 115 Anion Gap 15 Aspartate Amino Transf (AST/SGOT) 205 H Basophils # 0.0 Basophils % 0.4 Blood Morphology Comment Blood Urea Nitrogen 9 Calcium Level 9.7 Carbon Dioxide Level 30 Chloride Level 100 Creatinine 0.74 Direct Bilirubin 0.00 Eosinophils # 0.1 Eosinophils % 1.8 Glucose Level 129 # Hematocrit 34.8 L Hemoglobin 11.8 L Hepatitis B Core Total Antibody NEGATIVE Hepatitis B Surface Antigen NEGATIVE Hepatitis C Antibody NEGATIVE Indirect Bilirubin 0.4 Lymphocytes # 1.4 Lymphocytes % 23.8 Mean Corpuscular Hemoglobin 31.5 Mean Corpuscular Hemoglobin Concent 33.8 Mean Corpuscular Volume 93.0 Mean Platelet Volume 8.3 Monocytes # 0.6 Monocytes % 9.8 Neutrophils # 3.7 Neutrophils % 64.2 Nucleated Red Blood Cells # 0.0 Nucleated Red Blood Cells % 0.0 Platelet Count 93 L Potassium Level 4.1 Red Blood Count 3.74 L Red Cell Distribution Width 15.8 H Sodium Level 141 Total Bilirubin 0.4 Total Protein 7.9 White Blood Count 5.7 # Medications Current Medications Lorazepam (Ativan) 1 mg Q2H PRN IV seizure Last administered on 08/12/16 22:52 ; Admin Dose 1 MG; Start 08/11/16 at 19:30 Ondansetron HCl (Zofran Inj) 4 mg Q6H PRN IV NAUSEA AND/OR VOMITING Last administered on 08/14/16 15:26; Admin Dose 4 MG; Start 08/11/16 at 19:30 Nitroglycerin (Nitroglycerin (Sl Tab) 0.4 Mg) 1 tab Q5M PRN SL CHEST PAIN; Start 08/11/16 at 19:30 Docusate Sodium (Colace) 100 mg Q12H PRN PO CONSTIPATION; Start 08/11/16 at 19: 30 Famotidine 20 mg 20 mg Q12 IV Last administered on 08/14/16 20:37; Admin Dose 20 MG; Start 08/11/16 at 21:00 Levetiracetam 500 mg/Sodium Chloride 105 ml @ 420 mls/hr Q12 IVPB Last administered on 08/14/16 20:37; Admin Dose 420 MLS/HR; Start 08/11/16 at 21:00 Multivitamins/ Thiamine HCl/ Folic Acid/Sodium Chloride (Mvi-12 Adult/ Vitamin B1/Folic Acid/NS) 1,011.2 ml @ 125 mls/ hr DAILY@09 IVPB Last administered on 08/14/16 12:40; Admin Dose 125 MLS/HR; Start 08/12/16 at 09:00 Morphine Sulfate (morphine) 2 mg Q4H PRN IV PAIN LEVEL 7-10; Start 08/11/16 at 22:30 Acetaminophen (Tylenol Tab) 650 mg Q6H PRN PO PAIN AND OR ELEVATED TEMP; Start 08/11/16 at 22:30 Chlordiazepoxide (Librium) 25 mg TID PO Last administered on 08/14/16 20:37; Admin Dose 25 MG; Start 08/12/16 at 11:30 Sertraline HCl (Zoloft) 50 mg DAILY PO Last administered on 08/14/16 09:29; Admin Dose 50 MG; Start 08/12/16 at 11:00 Lorazepam (Ativan) 1 mg Q2H PRN IV AGITATION; Start 08/12/16 at 18:30 Haloperidol (Haldol) 2.5 mg Q4 PRN IM AGITATION Last administered on 08/14/16 20:37; Admin Dose 2.5 MG; Start 08/12/16 at 23:30 Assessment/Plan Chief Complaint/Hosp Course PHYSICAL EXAMINATION: GENERAL: He is not in acute distress, lying in bed. HEENT: Normocephalic, atraumatic head. NECK: No carotid bruits. No thyromegaly. LUNGS: Clear to auscultation bilaterally. CARDIAC: Normal cardiac rhythm and sounds. ABDOMEN: Soft, nontender. EXTREMITIES: No cyanosis, clubbing or edema. NEUROLOGIC: He is awake, alert, and oriented x2, thinks he is at home, later said on the ship. Fluent speech. Cranial nerve examination shows intact visual calle bilaterally. Pupils round, reactive to light from 4 to 2 mm bilaterally. Extraocular movements intact without nystagmus. Symmetrical face. Preserved facial strength and sensation. Tongue is in midline. Palate elevates symmetrically. Motor strength examination preserved in all extremities. Normal bulk, tone, and strength. Sensory examination grossly intact to light touch and pain. Deep tendon reflexes 2+ throughout. Downgoing toes bilaterally. Coordination examination shows no dysrhythmia, but postural tremor in bilateral upper extremities. IMPRESSION: Alcohol withdrawal. Alcohol withdrawal delirium. Likely alcohol withdrawal seizure. Continue treatment with benzodiazepines. EEG was normal. Will continue Keppra for now, will d/c after improvement of mental status. Problems: ANNEMARIE BETH MD Aug 14, 2016 21:27
[2016-08-15 07:50] VITALS: BP 160/98; PULSE 65; RESP 18
[2016-08-15] MEDS: MULTIVITAMINS 10 ML, THIAMINE 100 MG, FOLIC ACID 1 MG in SOD CHLORIDE 0.9% 1,000 ML IVPB SCH (09:00)
[2016-08-15] MEDS: FAMOTIDINE 20 MG INJ IV SCH (09:27)
[2016-08-15] MEDS: CHLORDIAZEPOXIDE 25 MG CAP PO SCH ×2 (09:27→12:45)
[2016-08-15] MEDS: SERTRALINE 50 MG TAB PO SCH (09:27)
[2016-08-15] MEDS: LEVETIRACETAM IV 500 MG in SOD CHLORIDE 0.9% 100 ML IVPB SCH (09:27)
--- NOTE | 2016-08-15 11:42 | PDOCDIS ---
Discharge Instructions CONDITION Patient Condition: Good HOME CARE INSTRUCTIONS: Diet Instructions: Regular ACTIVITY: Activity Restrictions: No Restrictions FOLLOW UP/APPOINTMENTS Appointments F/U WITH YOUR PCP IN 1-2 WEEKS, F/U WITH A MENTAL HEALTH SPECIALIST ARTURO ACOSTA Aug 15, 2016 11:42
[2016-08-15] MEDS ORDERED: SERT50TA6 PO (11:47)
--- NOTE | 2016-08-16 00:04 | DS ---
DATE OF ADMISSION: 08/11/2016 DATE OF DISCHARGE: 08/15/2016 DISCHARGE DIAGNOSES: 1. Tonic-clonic seizures secondary to alcohol withdrawal, now stable. 2. Alcohol withdrawal delirium, now resolved. 3. Depression with questionable suicidal ideation. The patient is status post telepsychiatric eval uation. Recommendation is to continue with antidepressant and to follow up with outpatient mental ealt. Cleared for discharge. 4. Normocytic anemia, likely secondary to alcohol abuse. HOSPITAL COURSE: The patient is a 41-year-old male with history of alcohol abuse, presents with new -onset seizure. The patient had a witnessed seizure, was felt to be alcohol induced. He was seen b y Neurology. He was put on Keppra during hospitalization. He was also maintained on Librium and wa s given a banana bag. The patient did have an EEG done that was essentially normal. The patient di d report some suicidal ideation according to the family, and he apparently told the family he was de pressed and suicidal. He subsequently felt better on day of discharge and denied any actual attempt of suicide and denied any further depression or suicidal ideation. He was seen by telepsychiatry. Recommendation was for an antidepressant to be given, for patient to follow up [facility]. Otherwise, there was no further evidence of any suicide ideation or severe depression, s o the patient was cleared for discharge to home. On day of discharge, the patient was alert, orient ed. His physical exam was stable. His vital signs, labs, physical exam were stable. He had no acu te complaints, and questions were answered. He was seen by adoption social worker, who gave the patient reso urces for outpatient mental health specialist and for alcohol withdrawal programs. Once again, the patient's questions were answered. CONDITION ON DISCHARGE: Stable. DISPOSITION: To home. MEDICATIONS: The patient was given a prescription for Zoloft 50 mg daily. The patient has no repor david home medications. FOLLOWUP: The patient to follow up with his PCP in 1 to 2 weeks and with outpatient mental health s pecialist and with alcohol withdrawal program. Greater than 30 minutes was spent coordinating discharge of patient. Dictated By: ARTURO ACOSTA MD BS/NTS Conf#: [id number] DID#: [id number]
== END 2016-08-15 16:52 | disposition home or self-care (01) | DRG 897 ==
LOC: E/R 14:37 → TEL 19:18 → PP2 08-13 22:03
PROVIDERS: ADMIT Student in an Organized Health Care Education/Training Program; ATTEND Student in an Organized Health Care Education/Training Program
DX: F10.231 Alcohol dependence with withdrawal delirium (principal); R56.9 Unspecified convulsions; F32.9 Major depressive disorder, single episode, unspecified; D53.9 Nutritional anemia, unspecified
CPT/HCPCS: 36415; 36430; 70450; 71010; 80048; 80053; 80061; 80076; 80306; 80307; 82140; 82728; 83036; 83540; 83735; 84100; 84443; 85025; 85049; 85610; 85670; 85730; 86644; 86704; 86709; 86803; 86850; 86900; 86901; 87340; 95819; 96374; 96375; 96376; J1630; J1953; J2060; J2405; J3411; J3475; J3480; J7030; P9035